=== PATIENT | female | born 1955 | race Caucasian/White ===

== ENCOUNTER 2017-04-10 11:07 | Outpatient (CLI) | payer SELFPAY | END 2017-04-10 11:08 | disposition home or self-care (01) | LOC: BICRAD 11:07 | PROVIDERS: ATTEND Neurological Surgery | DX: M47.26 Other spondylosis with radiculopathy, lumbar region (principal) | CPT/HCPCS: 72110 ==

== ENCOUNTER 2017-04-27 13:00 | Outpatient (CLI) | payer OTHER | END 2017-04-27 13:01 | disposition home or self-care (01) | LOC: LABBT 13:00 | PROVIDERS: ATTEND Neurological Surgery | DX: Z01.818 Encounter for other preprocedural examination (principal); M48.061 Spinal stenosis, lumbar region without neurogenic claudication; M43.16 Spondylolisthesis, lumbar region | CPT/HCPCS: 93005; 93010 ==

== ENCOUNTER 2017-05-02 06:23 | Day surgery (SDC) | payer OTHER ==
[2017-04-27 13:23] VITALS: BMI 31.3
--- NOTE | 2017-05-01 17:24 | HP ---
HISTORY OF PRESENT ILLNESS: Ms. Olea is a very pleasant 62-year-old woman who presents today for e valuation of severe lower back pain that is accompanied by neurogenic claudication symptoms. These h ave been present since around June this past year after falling twice at home. She has had several epidural steroid injections at Dr. Bourgeois as well as right hip replacement with Dr. Jenkins for fracture sustained from said falls. She has also been seeing Dr. Phipps at [facility] who has made referral to us today. She brings an MRI of disk from 11/07 that reveals transitional L5 segment with associated L4-L5 grade I slip. This causes foraminal compromise bilaterally. Addit ionally, she has severe central canal stenosis from central disk protrusion and facet hypertrophy at L3-L4, which is the level above her slip at the L4-L5. Spondylolisthesis is stable on flexion and ex tension films. She states that injections did help, but only for around 3 days. She has now reached a point in her postoperative healing process from her hip that she would like to turn and address he r back. PAST MEDICAL HISTORY: Ear infections, hearing loss, hypercholesterolemia, arthritis, depression, anx iety, hypertension. CURRENT MEDICATIONS: Colestipol, lisinopril, hydrocodone, amitriptyline, lovastatin, and meloxicam. ALLERGIES: No known drug allergies. PAST SURGICAL HISTORY: Hip replacement and cholecystectomy. PHYSICAL EXAMINATION: The patient is alert and oriented x3. Gait is slow and antalgic. Lower extre mity motor exam is normal. Reflexes are equal and present bilaterally at the patella. ASSESSMENT: Lumbar stenosis, neurogenic claudication. PLAN: Dr. Pizano met with the patient, reviewed imaging, and ultimately advocated for an L3-L4 decomp ression. He explained to the patient the risks, benefits, alternatives of the procedure. The patien t expressed understanding and would like to move forward with surgery as discussed. I do believe the patient is mentally competent and capable of making medical decisions for herself. We will move for miles with surgery as planned. Aldo Giraldo PA-C dictating for Dr. Pizano.
[2017-05-02] MEDS ORDERED: Thrombin 5000 UNITS/5 ML VIAL ONE (06:29)
[2017-05-02] MEDS ORDERED: Bupivacaine PF 0.5% 30 ML VIAL ONE (06:29)
[2017-05-02] MEDS ORDERED: CEFAZOLIN/Water 2 GM/20 ML SYRINGE ONE ×2 (06:48→11:44)
[2017-05-02] MEDS ORDERED: Fentanyl 100 MCG/2 ML VIAL ONE ×2 (07:37→09:43)
[2017-05-02] MEDS ORDERED: Lidocaine 1% w/Epinephrine 1:200K 30 ML VIAL ONE (08:28)
--- NOTE | 2017-05-02 10:12 | OP ---
DATE OF PROCEDURE: 05/02/2017 SURGEON: Aldo Giraldo PA-C INDICATION: Pain. DIAGNOSIS: Lumbar stenosis. PROCEDURE: L3-L4 lumbar decompression. ANESTHESIA: General. TECHNIQUE: The patient was brought in to the operating room and placed under general anesthesia. Sh e was flipped from a supine to a prone position on the operating room table. A linear incision was p lanned over the L3-L4 segment. After prepping and draping and after an appropriate operative pause, the incision was created and the soft tissues were swept away from midline. A self-retaining retract or was placed in the wound for optimal exposure. After confirming the appropriate level, a C-arm flu oroscopy, a high-speed cutting drill bit as well as 2, 3 and 4 mm Kerrisons and rongeurs were used th rough the spinous process and performed a laminectomy which encompasses the medial aspect of the face t joints. After complete decompression, the wound was irrigated. Hemostasis was maintained througho ut. The wound was then closed in anatomic layers and a pressure dressing was applied. There were no known procedural complications.
[2017-05-02] MEDS ORDERED: Acetaminophen/Codeine 30-300mg Tablet ONE (11:35)
[2017-05-02] MEDS ORDERED: ePHEDrine/0.9% NaCl/PF SYRINGE 50 mg/10 ml ONE (15:31)
[2017-05-02] MEDS ORDERED: PHENYLEPHRINE-NS 100 MCG/ML 10 ML SYRINGE ONE (15:31)
[2017-05-02] MEDS ORDERED: Dexamethasone 20 MG/5 ML VIAL ONE (15:31)
[2017-05-02] MEDS ORDERED: Lidocaine 1% PF 5 ML VIAL ONE (15:31)
[2017-05-02] MEDS ORDERED: Ketorolac Tromethamine 30 MG/ML VIAL ONE (15:31)
[2017-05-02] MEDS ORDERED: Glycopyrrolate 0.2 MG/ML 5 ML SYRINGE ONE (15:31)
[2017-05-02] MEDS ORDERED: Ondansetron HCl/PF 4 MG/2 ML Vial ONE (15:31)
[2017-05-02] MEDS ORDERED: PROPOFOL 200 MG/20 ML VIAL ONE (15:31)
== END 2017-05-02 12:25 | disposition home or self-care (01) ==
LOC: SDC 06:23
PROVIDERS: ATTEND Neurological Surgery
PROC: 00NY0ZZ Release Lumbar Spinal Cord, Open Approach (ICD-10-PCS; principal; 2017-05-02)
DX: M48.062 Spinal stenosis, lumbar region with neurogenic claudication (principal); M43.16 Spondylolisthesis, lumbar region; E78.00 Pure hypercholesterolemia, unspecified; H91.90 Unspecified hearing loss, unspecified ear; M19.90 Unspecified osteoarthritis, unspecified site; F41.9 Anxiety disorder, unspecified; F32.9 Major depressive disorder, single episode, unspecified; Z79.899 Other long term (current) drug therapy; Z90.49 Acquired absence of other specified parts of digestive tract; Z96.641 Presence of right artificial hip joint; Z98.890 Other specified postprocedural states
CPT/HCPCS: 76001; 96374; J1100; J1885; J2001; J2405; J2704; J3010; S0020

== ENCOUNTER 2017-10-30 11:48 | Outpatient (CLI) | payer OTHER | END 2017-10-30 11:49 | disposition home or self-care (01) | LOC: BICMAMMO 11:48 | PROVIDERS: ATTEND Family Medicine | DX: Z12.31 Encounter for screening mammogram for malignant neoplasm of breast (principal); R92.1 Mammographic calcification found on diagnostic imaging of breast; Z80.3 Family history of malignant neoplasm of breast | CPT/HCPCS: 77063; 77067 ==

== ENCOUNTER 2018-03-11 12:10 | Emergency (ER) | payer MEDICAID, OTHER, SELFPAY ==
--- NOTE | 2018-03-11 13:31 | CT ---
HEAD CT WITHOUT CONTRAST: DATE: 03/11/2018. HISTORY: Fall, trauma, pain. TECHNIQUE: Axial CT imaging at 4.8 mm intervals from vertex through skull base without contrast. FINDINGS: The imaged paranasal sinuses and mastoid air cells appear well aerated. There is no displaced calvari al fracture. There is no intracranial hemorrhage, midline shift, mass effect, or ventricular enlargement. IMPRESSION: No intracranial hemorrhage or displaced calvarial fracture. POS: [facility]
--- NOTE | 2018-03-11 14:02 | RAD ---
TWO VIEWS OF THE LEFT HIP: DATE: 03/11/2018. HISTORY: Injury, trauma, pain, fall 2 days ago with lack of strength in the left lower extremity. FINDINGS: There is mild superior joint space narrowing involving the left hip with mild left-sided acetabular o steophyte formation. There is a total hip arthroplasty on the right. No displaced fracture or dislo cation. IMPRESSION: No acute osseous abnormality. POS: [facility]
--- NOTE | 2018-03-11 14:02 | CT ---
CT OF LUMBAR SPINE: Date: 03-11-18 Comparison: None. History: Fall, trauma, pain, lack of strength in left lower extremity. Technique: Axial CT imaging through the lumbar spine at 2 mm intervals with coronal and sagittal refo rmatted imaging. FINDINGS: Evaluation for central canal and/or neural foraminal stenosis is limited on routine CT. There are five lumbar type vertebral bodies. There is anterolisthesis of L4 on L5 measuring 5-6 mm. T12-L1: Bilateral facet hypertrophy, right greater than left. No osseous cause of significant central canal or neural foraminal st[place]. L1-2: Mild facet hypertrophy and hypertrophy of ligamentum flavum, right greater than left. No osseou s cause of significant central canal or neural foraminal stenosis. L2-3: There is bilateral facet hypertrophy and hypertrophy of ligamentum flavum, right greater than l eft. Probable mild bilateral neural foraminal stenosis. No osseous cause of significant central canal stenosis. L3-4: Bilateral laminectomy changes are present. Significant bilateral facet hypertrophy is present. Moderate left neural foraminal stenosis and mild right neural foraminal stenosis. Probable mild centr al canal stenosis. L4-5: Disc space narrowing. Disc bulge noted with at least moderate central canal stenosis and signif icant right lateral recess stenosis. Prominent bilateral facet hypertrophy. Mild bilateral foraminal stenosis, right greater than left. L5-S1: There is no osseous cause of significant central canal or neural foraminal stenosis. There are degenerative changes noted within bilateral [id number] joints. There is no acute fracture or evidence of dislocation seen. There is no worrisome lytic or blastic bone lesion. There is scattered atherosclerotic calcification of the abdominal aorta. IMPRESSION: No acute osseous abnormality. Multilevel degenerative change noted within the lumbar spine with centr al canal stenosis at L4-5. If there are radicular symptoms, follow up MRI suggested. POS: [facility]
--- NOTE | 2018-03-11 14:03 | RAD ---
FRONTAL VIEW PELVIS: INDICATION: Injury. FINDINGS: Right hip prosthesis is present. There is moderate osteoarthritis of the left hip. No discrete frac ture of the pelvis is seen. Recommend referencing dedicated left hip radiograph series for further d etail of the left hip. IMPRESSION: No definite acute osseous abnormality of the postoperative pelvis. POS: [facility]
== END 2018-03-11 13:52 | disposition home or self-care (01) ==
LOC: SCSER 12:10
DX: S00.83XA Contusion of other part of head, initial encounter (principal); S70.02XA Contusion of left hip, initial encounter; M54.16 Radiculopathy, lumbar region; I10 Essential (primary) hypertension; K58.9 Irritable bowel syndrome, unspecified; F32.9 Major depressive disorder, single episode, unspecified; E78.5 Hyperlipidemia, unspecified; Z79.899 Other long term (current) drug therapy; W19.XXXA Unspecified fall, initial encounter
CPT/HCPCS: 70450; 72131; 72170

== ENCOUNTER 2018-04-05 09:35 | Day surgery (SDC) | payer OTHER ==
[2018-04-04 12:02] VITALS: BMI 32.1
[2018-04-05] MEDS ORDERED: Fentanyl 100 MCG/2 ML VIAL ONE (12:43)
--- NOTE | 2018-04-05 15:21 | MRI ---
EXAM: MRI Lumbar spine with and without contrast HISTORY: low back pain m54.9 COMPARISON: CT 03/11/18 Aortic contour is nonaneurysmal. No retroperitoneal adenopathy. Paraspinal musculature is normal. The prior CT numbering model will be performed. At L5 is a lumbosacral transitional vertebra with fu bonnie of the enlarged left transverse process with the sacrum. There is a small disk at the L5-S1. T his will be termed L5 for the sake of this exam. No marrow infiltrative process. The conus medullaris terminates near the superior end plate of L1. Levels are as follows: L1-2: Normal disk. No neural foraminal or spinal canal narrowing. L2-3: Minimal bilateral subforaminal and posterior disk-osteophyte complexes. The spinal canal has congenital narrowing throughout the lumbar spine. Canal measures approximately 6 mm. No significant neural foraminal narrowing. L3-4: There is a broad-based very mild posterior disk bulge extending into the left subforaminal and extraforaminal lobes. This causes moderate left-sided neural foraminal narrowing. Severe facet art hropathy bilaterally. Mild right-sided neural foraminal narrowing. L4-5: Anterolisthesis of L4 over L5, grade I, 4 mm. Moderate hypertrophic facet changes. Moderate bilateral neural foraminal narrowing. L5-S1: No neural foraminal or spinal canal narrowing. IMPRESSION: 1. Congenitally foreshortened pedicles. 2. Mild to moderate spondylosis at L2-3 and L4-5. There is grade I L4 over L5 anterolisthesis due t o degenerative facet changes. 3. Laminectomy changes at L3-L4. POS: [facility]
[2018-04-05] MEDS ORDERED: PROPOFOL 200 MG/20 ML VIAL ONE (20:48)
[2018-04-05] MEDS ORDERED: PHENYLEPHRINE-NS 100 MCG/ML 10 ML SYRINGE ONE (20:48)
[2018-04-05] MEDS ORDERED: Lidocaine 1% PF 5 ML VIAL ONE (20:48)
== END 2018-04-05 14:12 | disposition home or self-care (01) ==
LOC: SDC/OP 09:35
PROVIDERS: ATTEND Family Medicine
DX: M47.816 Spondylosis without myelopathy or radiculopathy, lumbar region (principal); M43.16 Spondylolisthesis, lumbar region; Z79.1 Long term (current) use of non-steroidal anti-inflammatories (NSAID); Z79.899 Other long term (current) drug therapy
CPT/HCPCS: 36415; 72158; 82565; 96374; J2001; J2704; J3010

== ENCOUNTER 2019-08-29 07:58 | Outpatient (CLI) | payer OTHER ==
--- NOTE | 2019-08-29 08:39 | MMO ---
Bilateral MAMMO Bilat Diag [facility]. CLINICAL HISTORY: Patient is 64 years old and is seen for diagnostic exam and palpable abnormality in the right breast. The patient has no family history of breast cancer. The patient has no personal history of cancer. The patient has a history of left Excisional Biopsy in 1995 - benign. VIEWS: The views performed were: bilateral craniocaudal with tomosynthesis; bilateral mediolateral oblique with tomosynthesis; and bilateral mediolateral with tomosynthesis. FILMS COMPARED: The present examination has been compared to prior imaging studies performed at [facility] on 03/25/2014, 01/31/2016, 10/30/2017 and 08/29/2019. This study has been interpreted with the assistance of computer-aided detection. MAMMOGRAM FINDINGS: There are scattered fibroglandular densities. There is a stable intramammary lymph node seen in the right breast at 12 o'clock. There are no concerning mammographic or sonographic abnormalities in the area of palpable concern. The patient is referred back to her clinician. Negative imaging findings should not preclude biopsy if clinical findings are suspicious. There are no suspicious masses, suspicious calcifications, or new areas of architectural distortion. IMPRESSION: THERE IS NO MAMMOGRAPHIC EVIDENCE OF MALIGNANCY. THERE ARE NO CONCERNING MAMMOGRAPHIC ABNORMALITIES IN THE AREA OF PALPABLE CONCERN. THE PATIENT IS REFERRED BACK TO HER CLINICIAN. NEGATIVE IMAGING FINDINGS SHOULD NOT PRECLUDE BIOPSY IF CLINICAL FINDINGS ARE SUSPICIOUS. THE RESULTS OF THIS EXAM WERE SENT TO THE PATIENT. ACR BI-RADS Category 2 - Benign finding MAMMOGRAPHY NOTE: 1. A negative mammogram report should not delay a biopsy if a dominant of clinically suspicious mass is present. 2. Approximately 10% to 15% of breast cancers are not detected by mammography. 3. Adenosis and dense breasts may obscure an underlying neoplasm. Reported by: JOY BHATTI MD Electonically Signed: [id number]
--- NOTE | 2019-08-29 08:41 | MMO ---
Right US Breast Limited Rt. CLINICAL HISTORY: Patient is 64 years old and is seen for . The patient has a history of left Excisional Biopsy in 1995 - benign. VIEWS: The views performed were: . FILMS COMPARED: The present examination has been compared to prior imaging studies performed at [facility] on 03/25/2014, 01/31/2016, 10/30/2017 and 08/29/2019. This study has been interpreted with the assistance of computer-aided detection. RIGHT BREAST ULTRASOUND FINDINGS: There is a lymph node seen in the right breast. This appears normal. This is in the region of palpable concern. There are no concerning mammographic or sonographic abnormalities in the area of palpable concern. The patient is referred back to her clinician. Negative imaging findings should not preclude biopsy if clinical findings are suspicious. On ultrasound, no suspicious findings are identified. IMPRESSION: THERE ARE NO CONCERNING SONOGRAPHIC ABNORMALITIES IN THE AREA OF PALPABLE CONCERN. THE PATIENT IS REFERRED BACK TO HER CLINICIAN. NEGATIVE IMAGING FINDINGS SHOULD NOT PRECLUDE BIOPSY IF CLINICAL FINDINGS ARE SUSPICIOUS. THE RESULTS OF THIS EXAM WERE SENT TO THE PATIENT. ACR BI-RADS Category 2 - Benign finding MAMMOGRAPHY NOTE: 1. A negative mammogram report should not delay a biopsy if a dominant of clinically suspicious mass is present. 2. Approximately 10% to 15% of breast cancers are not detected by mammography. 3. Adenosis and dense breasts may obscure an underlying neoplasm. Reported by: JOY BHATTI MD Electonically Signed: [id number]
== END 2019-08-29 07:59 | disposition home or self-care (01) ==
LOC: BICMAMMO 07:58
PROVIDERS: ATTEND Obstetrics & Gynecology
DX: N63.41 Unspecified lump in right breast, subareolar (principal)
CPT/HCPCS: 77066; G0279

== ENCOUNTER 2020-06-29 10:40 | Outpatient (CLI) | payer MEDICARE ==
[2020-06-29 23:42] LABS: SARS-CoV-2 PCR by NAA Not Detected (NotDetected)
== END 2020-06-29 10:41 | disposition home or self-care (01) ==
LOC: LABBT 10:40
PROVIDERS: ATTEND Anesthesiology Pain Medicine
DX: M48.02 Spinal stenosis, cervical region (principal); Z20.822 Contact with and (suspected) exposure to COVID-19
CPT/HCPCS: U0003; U0005; 87635

== ENCOUNTER → 2020-07-02 | Day surgery (SDC) | payer MEDICARE ==
[2020-07-01 09:53] VITALS: BMI 32.8
== END ==
LOC: SDC/OP 10:29 → EDSTATUS 12:00
PROVIDERS: ATTEND Anesthesiology Pain Medicine
DX: M48.02 Spinal stenosis, cervical region (principal); G99.2 Myelopathy in diseases classified elsewhere; M48.062 Spinal stenosis, lumbar region with neurogenic claudication; E78.00 Pure hypercholesterolemia, unspecified; M19.90 Unspecified osteoarthritis, unspecified site; Z53.20 Procedure and treatment not carried out because of patient's decision for unspecified reasons; Z79.1 Long term (current) use of non-steroidal anti-inflammatories (NSAID); Z79.899 Other long term (current) drug therapy; Z91.018 Allergy to other foods

== ENCOUNTER 2020-09-27 09:58 | Day surgery (SDC) | payer MEDICARE ==
[2020-09-24 10:40] VITALS: BMI 32.8
[2020-09-27] MEDS ORDERED: Midazolam HCl 2 mg/2 ml Vial ONE (12:23)
[2020-09-27] MEDS ORDERED: PHENYLEPHRINE-NS 100 MCG/ML 10 ML SYRINGE ONE (12:30)
[2020-09-27] MEDS ORDERED: PROPOFOL 200 MG/20 ML VIAL ONE (12:30)
[2020-09-27] MEDS ORDERED: Ondansetron PF 4 MG/2 ML Vial ONE (12:30)
[2020-09-27] MEDS ORDERED: Dexamethasone 20 MG/5 ML VIAL ONE (12:30)
[2020-09-27] MEDS ORDERED: Lidocaine 1% PF 5 ML VIAL ONE (12:30)
== END 2020-09-27 15:30 | disposition home or self-care (01) ==
LOC: SDC/OP 09:58 → EDSTATUS 12:00 → SDC/OP 15:30
PROVIDERS: ATTEND Anesthesiology Pain Medicine
DX: M50.21 Other cervical disc displacement, high cervical region (principal); M48.02 Spinal stenosis, cervical region; M25.78 Osteophyte, vertebrae; M48.04 Spinal stenosis, thoracic region; M43.16 Spondylolisthesis, lumbar region; M48.062 Spinal stenosis, lumbar region with neurogenic claudication; G89.29 Other chronic pain; M54.9 Dorsalgia, unspecified; Z79.1 Long term (current) use of non-steroidal anti-inflammatories (NSAID); Z79.899 Other long term (current) drug therapy
CPT/HCPCS: 72141; 72146; 72148; J1100; J2250; J2405; J2704

== ENCOUNTER 2021-06-07 11:17 | Outpatient (CLI) | payer MEDICARE | END 2021-06-07 11:18 | disposition home or self-care (01) | LOC: BICRAD 11:17 | PROVIDERS: ATTEND Nurse Practitioner Family | DX: M25.552 Pain in left hip (principal); M16.12 Unilateral primary osteoarthritis, left hip ==